=== PATIENT | male | born 1985 | race Caucasian/White ===

== ENCOUNTER 2019-10-31 21:28 | Emergency (ER) | payer MEDICAID, SELFPAY ==
[2019-10-31] MEDS ORDERED: Bupivacaine 0.5%/EPINEPHrine 1:200,000 1.8 ML Cartridge INJECT ONE (22:05)
--- NOTE | 2019-10-31 22:11 | EDM.PDOC ---
ED HPI GENERAL MEDICAL PROBLEM - General Chief Complaint: ENT Problem Stated Complaint: ABSCESS TOOTH LT SIDE Time Seen by Provider: 10/31/19 21:50 Source of Information: Reports: Patient, Family History Limitations: Reports: No Limitations - History of Present Illness INITIAL COMMENTS - FREE TEXT/NARRATIVE: 33-year-old male who is been having some dental pain on the left mandible for the last 2 months, over the past several days he has had increased swelling and pain. He has not been to the dentist in years. No fevers or chills. The swelling and pain is increased quite dramatically over the past 12 hours. Onset: Gradual Duration: Day(s): (Worsening over the past 12 to 24 hours) Location: Reports: Head, Face Associated Symptoms: Reports: Loss of Appetite, Malaise. Denies: Fever/Chills, Nausea/Vomiting, Shortness of Breath left side dental abscess Pain Score (Numeric/FACES): 7 - Related Data Allergies Allergy/AdvReac Type Severity Reaction Status Date / Time ibuprofen [From Motrin] Allergy Itching Verified 03/09/13 09:48 Home Meds: Home Meds NK [No Known Home Meds] 09/01/13 [History] Past Medical History - Past Health History Medical/Surgical History: Denies Medical/Surgical History Social & Family History - Tobacco Use Smoking Status *Q: Never Smoker - Caffeine Use Caffeine Use: Reports: Coffee, Soda - Recreational Drug Use Recreational Drug Use: No ED ROS ENT - Review of Systems Review Of Systems: See Below Constitutional: Reports: Malaise, Other (Patient does not feel chills or feverish, however his temperature is 99.6). Denies: Fever HEENT: Reports: Other (Significant and longstanding left mandibular dental pain) Respiratory: Reports: No Symptoms GI/Abdominal: Denies: Nausea, Vomiting Skin: Denies: Erythema Neurological: Reports: Headache ED EXAM, ENT - Physical Exam Exam: See Below Exam Limited By: No Limitations General Appearance: Alert, No Apparent Distress, Other (Looks uncomfortable but not distressed) Mouth/Throat: Other (Patient has several scattered dental caries and metal fillings, the left mandibular gingiva is erythematous and swollen and there is some soft tissue swelling extending into the buccal area of the cheek.) Neck: No: Lymphadenopathy (R), Lymphadenopathy (L) Respiratory/Chest: No Respiratory Distress Course - Vital Signs Last Recorded V/S: Last Vital Signs Temp 99.6 F 10/31/19 21:53 Pulse 89 10/31/19 22:56 Resp 16 10/31/19 22:56 BP 127/60 10/31/19 22:56 Pulse Ox 93 L 10/31/19 22:56 - Orders/Labs/Meds Meds: Medications Discontinued Medications Generic Name Dose Route Start Last Admin Trade Name Ronald PRN Reason Stop Dose Admin Bupivacaine HCl/Epinephrine Bitart 1.8 ml 10/31/19 22:05 10/31/19 22:20 Marcaine 0.5%/Epinephrine 1:200,000 INJECT 10/31/19 22:06 1.8 ml ONETIME ONE Administration Ceftriaxone Sodium 1 gm/ 50 mls @ 100 mls/hr 10/31/19 22:30 10/31/19 22:44 Sodium Chloride IV 10/31/19 22:59 100 mls/hr ONETIME ONE Administration Ketorolac Tromethamine 30 mg 10/31/19 22:30 10/31/19 22:40 Toradol IVPUSH 10/31/19 22:31 30 mg ONETIME ONE Administration Methylprednisolone Sodium Succinate 125 mg 10/31/19 22:33 10/31/19 22:43 Solu-Medrol IVPUSH 10/31/19 22:34 125 mg ONETIME ONE Administration - Re-Assessments/Exams Free Text/Narrative Re-Assessment/Exam: 10/31/19 22:45 Patient was in for some fairly significant discomfort, he was given bupivacaine dental block which was very successful. I did freeman the soft tissue where the swelling was most prominent hoping to initiate drainage from the abscess but there was nothing drained. An IV was started the patient was given 1 g of Rocephin IV, 30 mg of Toradol IV, and 125 mg of Solu-Medrol. He will be continued on Augmentin twice daily and needs to see a dentist early next week. Departure - Departure Time of Disposition: 23:31 Disposition: Home, Self-Care 01 Clinical Impression: Dental abscess - Discharge Information Instructions: Dental Abscess Referrals: PCP,None [Primary Care Provider] - Forms: ED Department Discharge Care Plan Goals: Take oral antibiotic twice daily, take 1 pain pill every 6-8 hours, and warm c ompresses to the area may be helpful. Return over the next 24 to 48 hours if worsening, if improving try to get into see a dentist next week. Sepsis Event Note (ED) - Evaluation Sepsis Screening Result: Possible Sepsis Risk - Focused Exam Vital Signs: Vital Signs Temp Pulse Resp BP Pulse Ox 10/31/19 22:56 89 16 127/60 93 L 10/31/19 21:53 99.6 F 116 H 18 138/77 97 10/31/19 21:46 99.6 F 116 H 18 138/77 97
[2019-10-31] MEDS ORDERED: Ketorolac 30 MG/ML SDV IVPUSH ONE (22:30)
[2019-10-31] MEDS ORDERED: cefTRIAXone 1 GM in Sodium Chloride 0.9% 50 ML IV ONE (22:30)
[2019-10-31] MEDS ORDERED: methylPREDNISolone Sodium Succinate 125 MG/2 ML SDV IVPUSH ONE (22:33)
== END 2019-10-31 23:32 | disposition home or self-care (01) ==
LOC: JP.ED 21:28
DX: K04.7 Periapical abscess without sinus (principal); K02.9 Dental caries, unspecified; Z88.6 Allergy status to analgesic agent
CPT/HCPCS: 64400; 96365; 96375; 99283; J0696; J1885; J2930; J3490; J7050

== ENCOUNTER 2024-01-15 06:25 | Emergency (ER) | payer SELFPAY ==
[2024-01-15] MEDS: Diphtheria,Pertussis(Acell),Tetanus Vaccine 0.5 ML Syringe IM ONE (07:20)
== END 2024-01-15 09:41 | disposition home or self-care (01) ==
LOC: JP.ED 06:25
DX: M79.671 Pain in right foot (principal); F17.210 Nicotine dependence, cigarettes, uncomplicated; Z88.8 Allergy status to other drugs, medicaments and biological substances; W45.0XXA Nail entering through skin, initial encounter
CPT/HCPCS: 73620-26-RT; 73620-RT; 90715; 99283